=== PATIENT | female | born 1960 | race Caucasian/White ===

== ENCOUNTER 2016-12-14 14:44 | Inpatient (IN) ==
[2016-12-14] MEDS ORDERED: SODIUM CHLORIDE 0.9% 500 ML IV STA (15:13)
--- NOTE | 2016-12-14 15:20 | Emergency Department Note ---
Arrival - Arrival Chief Complaint: Seizure Stated Complaint: seizures ED Nursing Triage Note: Pt arrived via ems with complaint of seizures x 3 whiule at [facility]. Pt reports being here earlier being treated for uti. Pt is a resident of [facility]. Mode of Arrival: Stretcher Time Seen by Provider: 12/14/16 15:08 - History of Present Illness HPI Narrative: 56-year-old white female brought here today by EMS because she had a seizure. Patient was recently seen this morning also given a Johnson with leg bag treated for urine tract infection sent home. Patient has a history of seizures. Patient normally has a headache after seizure which she does today her Current complaints are headache feeling weak and recent seizure activity. Patient received a antibiotic injection this morning according to family. Patient also received her monthly Haldol injection yesterday Allergies/Adverse Reactions: Allergies Allergy/AdvReac Type Severity Reaction Status Date / Time cephalexin [From Keflex] AdvReac Nausea Verified 12/14/16 11:09 Home Medications: Home Medications Medication Instructions Recorded Confirmed Type Aspirin [Ecotrin] 81 mg PO DAILY 05/14/16 12/14/16 History Benztropine Tab [Cogentin Tab] 1 mg PO DAILY 05/14/16 12/14/16 History Docusate Sodium 100 mg PO BID 05/14/16 12/14/16 History Ferrous Sulfate 325 mg PO DAILY 05/14/16 12/14/16 History Ipratropium/Albuterol Sulfate 3 ml IH Q6H PRN 05/14/16 12/14/16 History [Iprat-Albut 0.5-3(2.5) mg/3 ml] Lactulose 30 ml PO DAILY 05/14/16 12/14/16 History Levothyroxine Tab [Synthroid Tab] 150 mcg PO QAM 05/14/16 12/14/16 History Methocarbamol Tab [Robaxin Tab] 500 - 1,000 mg PO Q8H PRN 05/14/16 12/14/16 History Multivitamin [Multivitamins] 1 each PO DAILY 05/14/16 12/14/16 History Nitrofurantoin Macrocrystal 50 mg PO DAILY 05/14/16 12/14/16 History [Nitrofurantoin] Omeprazole [Prilosec] 20 mg PO BID 05/14/16 12/14/16 History Phenytoin Sodium Extended 400 mg PO BEDTIME 05/14/16 12/14/16 History Ursodiol 500 mg PO TID W/MEALS 05/14/16 12/14/16 History diphenhydrAMINE CAP [Benadryl Cap] 25 mg PO Q6H PRN 05/14/16 12/14/16 History Acetaminophen [Acetaminophen ER 650 mg PO Q4H PRN MDD 3GM/24H 12/14/16 12/14/16 History Tab] Calcium Carbonate [Calcium] 500 - 1,000 mg PO Q8H PRN 12/14/16 12/14/16 History Divalproex Sodium [Divalproex 1,500 mg PO BID 12/14/16 12/14/16 History Sprinkle] Gabapentin [Gabapentin] 100 mg PO BEDTIME 12/14/16 12/14/16 History Haloperidol [Haloperidol] 5 mg PO BID 12/14/16 12/14/16 History Ipratropium/Albuterol Sulfate 3 ml INH Q6H PRN 12/14/16 12/14/16 History [Iprat-Albut 0.5-3(2.5) mg/3 ml] Magnesium Hydroxide Susp [Milk of 30 ml PO Q8H PRN 12/14/16 12/14/16 History Magnesia] Phenol 1.4% Throat [place] 2 spray PO Q2H PRN 12/14/16 12/14/16 History [Chloraseptic [place]] Phenytoin Sodium Extended 300 mg PO QAM 12/14/16 12/14/16 History Venlafaxine HCl [Venlafaxine HCl 150 mg PO DAILY 12/14/16 12/14/16 History ER] Review of System - Review of System 12 point system: reviewed and no additional remarkable complaints except as stated - Review of System Constitutional: Present: weakness Neurological: Present: headache, weakness Medical,Surgical,& Family Hx - Medical History Cardio: History of: Hypertension Psychological: History of: Depression, Schizophrenia, Psychiatric Problems ( Mentally challanged) Neurology: History of: Seizures Gastrointestinal: History of: GERD - Social History Smoking Status: Smoker, status unknown Frequency of Alcohol Use: None Type of Drug Use: None Exam Vital Signs: Vital Signs Temperature 98.2 F 12/14/16 14:44 Pulse Rate 79 12/14/16 16:00 Respiratory Rate 15 12/14/16 16:00 Blood Pressure 125/86 12/14/16 16:00 O2 Sat by Pulse Oximetry 95 12/14/16 16:00 - General General appearance: alert - Head Head exam: Present: atraumatic, normocephalic, normal inspection - Eye Eye exam: Present: normal appearance, PERRL, EOMI - ENT ENT exam: Present: normal exam, normal oropharynx, mucous membranes dry - Neck Neck exam: Present: normal inspection, full ROM, trachea midline - Chest Chest inspection: Present: normal inspection, symmetric chest wall rise - Respiratory Respiratory exam: Present: normal lung sounds bilaterally - Cardiovascular Cardiovascular exam: Present: regular rate, normal rhythm, normal heart sounds - Abdominal Exam Abdominal exam: Present: soft, normal bowel sounds - Extremities Exam Extremities exam: Present: normal inspection, full ROM, pedal edema - Back Exam Back exam: Present: normal inspection, full ROM - Neurological Exam Neurological exam: Present: alert, oriented X3, normal gait - Psychiatric Psychiatric exam: Present: flat affect - Skin Skin exam: Present: warm, dry, intact, normal color Course - Consultations Consultation #1: Hospitalist will admit patient Time: 17:27 Results - Labs CBC & BMP: 12/14/16 16:34 12/14/16 16:34 Critical Care Time Critical Care Time: Yes Total Critical Care Time: 60 Disposition Clinical Impression: Urinary tract infection, Metabolic acidosis, Epileptic seizure, Schizophrenia Case discussed with: patient, patient's family Disposition: Still a Patient Condition: Stable Time of Disposition: 17:27
--- NOTE | 2016-12-14 15:32 | CT Report ---
Referring physician: Marcellus Parsons Exam: CT brain without contrast Date: 12/14/2016 Comparison: 05/18/2010 Reason: Seizure Technique: Axial images of the head were obtained without the use of contrast. Total DLP was 1103.60 mGy*cm. Findings: No hydrocephalus or midline shift is present. There is no evidence of an acute infarction, recent intracranial hemorrhage or abnormal mass effect. The osseous structures appear intact. The mastoid air cells and visualized paranasal sinuses are clear. Impression: No acute intracranial abnormality is identified. The CT exam was performed using one or more of the following dose reduction techniques: Automated exposure control and adjustment of the mA and/or kV according to patient size. PROCEDURE INTERPRETED AT [facility] DEPARTMENT OF RADIOLOGY Final Report Signed by: Dr. Maranda Mcbride
[2016-12-14 16:53] LABS: Basophils % 0.3 % (0.0-0.8); Eosinophils # 0.2 10*3/uL (0.0-0.87); Eosinophils % 1.9 % (0.00-10.9); Hematocrit 39.2 VOL% (35.7-47.0); Hemoglobin 13.6 GM/DL (12.0-16.0); Immature Granulocytes % 2.8 %; Immature Granulocytes Absolute 0.26 #; Lymphocytes # 2.4 10*3/uL (1.4-4.0); Lymphocytes % 25.1 % (21.3-54.2); Mean Corpuscular HGB Conc 34.7 GM/DL (32-36); Mean Corpuscular Hemoglobin 34 PG (27-34); Mean Platelet Volume 9.2 FL (9.6-12.0); Monocytes % 10.3 % (1.7-12.7); Neutrophils # 5.6 10*3/uL (1.4-7.4); Neutrophils % 59.6 % (38.7-73.9); Platelet Count 225 T/CUMM (130-400); Red Blood Count 4.04 MC/CUMM (3.8-5.5); Red Cell Distribution Width 14.6 % (9.3-17.3); White Blood Count 9.4 T/CUMM (4-12)
[2016-12-14 17:05] LABS: Phenytoin (Dilantin) 10.2 UG/ML (10-20)
[2016-12-14 17:08] LABS: Alanine Aminotransferase 14 U/L (13-56); Albumin 2.8 G/DL (3.4-5.0); Alkaline Phosphatase 311 U/L (45-117); Aspartate Amino Transferase 14 U/L (0-37); Bilirubin,Total < 0.39 MG/DL (0.2-1.0); Blood Urea Nitrogen 14 MG/DL (7-18); Calcium 8.2 MG/DL (8.5-10.1); Glucose 103 MG/DL (74-106); Osmolality,Calculated 277.5 MOS/KG (273-304); Potassium 3.5 MMOL/L (3.5-5.1); Sodium 139 MMOL/L (136-145); Total Protein 6.5 G/DL (6.4-8.3)
[2016-12-14] MEDS ORDERED: PHENYTOIN INJ 1,000 MG in SODIUM CHLORIDE 0.9% 100 ML IV STA (17:21)
[2016-12-14] MEDS ORDERED: LEVOFLOXACIN INJ 500 MG in PREMIX 1 EACH IV STA (17:26)
[2016-12-14] MEDS ORDERED: PHENYTOIN 100 MG/2 ML VIAL IV ONE (17:39)
--- NOTE | 2016-12-14 18:07 | Hospitalist History & Physical ---
<Yesika Kilpatrickda - Last Filed: 12/14/16 17:59> Assessment and Plan (1) Epileptic seizure Status: Acute Assessment and plan: The patient had recurrent seizure activity prior to presentation. No further episodes are noted. I feel that this may be secondary to an infectious process. Her her Dilantin and valproic acid levels were therapeutic. We will resume her anticonvulsant therapy and monitor. Current Visit: Yes (2) Metabolic acidosis Status: Acute Current Visit: Yes (3) Urinary tract infection Status: Acute Assessment and plan: The patient was previously seen in the fast track and given an antibiotic injection and oral meds for discharge. The patient had not started the oral antibiotics at the time that the seizure activity occurred. We will start empiric antibiotics and reassess in a.m. I feel that the UTIs will be a chronic issue for this patient due to her self catheterizations. She performs them independently however I am not sure exactly how is able to due to her mental status. Current Visit: Yes History of Present Illness Chief complaint: Seizure activity and UTI History of present illness: This is a very pleasant 56-year-old female that presented to the ED at [facility] for evaluation of seizure activity. The patient has a very complex medical history significant for seizures, depression, schizophrenia , seizures, hypertension, and GERD. The patient presented to the urgent care/ [facility] this morning and was subsequently diagnosed with the UTI. She was given an antibiotic injection and prescribed oral antibiotics for home use. After leaving the hospital this morning, the patient went out for lunch with her sister and started to experience multiple episodes of seizure activity. EMS was notified and the patient was transferred to [facility] for further evaluation. At the time of easy presentation, the patient was assessed. Labs were obtained which reported a sodium at 139, potassium at 3.5, chloride at 110, carbon dioxide is 16, anion gap is 16.5, BUN 14, creatinine at 1.50, calcium at 8.2, magnesium at 2.0, alkaline phosphatase 311, albumin at 2.8. Dilantin level was obtained and was noted at 10.2 and valproic acid level was noted at 58 0. Urinalysis was obtained at the initial encounter which was significant for a positive findings of nitrate, large amount of leukocytes, and greater than 2 urobilinogen. After brief discussion with Dr. Parsons and Dr. Ignacio, the patient will be admitted to the hospitalist services for continuation of care. Home Medications Medication Instructions Recorded Confirmed Type Aspirin [Ecotrin] 81 mg PO DAILY 05/14/16 12/14/16 History Benztropine Tab [Cogentin Tab] 1 mg PO DAILY 05/14/16 12/14/16 History Docusate Sodium 100 mg PO BID 05/14/16 12/14/16 History Ferrous Sulfate 325 mg PO DAILY 05/14/16 12/14/16 History Ipratropium/Albuterol Sulfate 3 ml IH Q6H PRN 05/14/16 12/14/16 History [Iprat-Albut 0.5-3(2.5) mg/3 ml] Lactulose 30 ml PO DAILY 05/14/16 12/14/16 History Levothyroxine Tab [Synthroid Tab] 150 mcg PO QAM 05/14/16 12/14/16 History Methocarbamol Tab [Robaxin Tab] 500 - 1,000 mg PO Q8H PRN 05/14/16 12/14/16 History Multivitamin [Multivitamins] 1 each PO DAILY 05/14/16 12/14/16 History Nitrofurantoin Macrocrystal 50 mg PO DAILY 05/14/16 12/14/16 History [Nitrofurantoin] Omeprazole [Prilosec] 20 mg PO BID 05/14/16 12/14/16 History Phenytoin Sodium Extended 400 mg PO BEDTIME 05/14/16 12/14/16 History Ursodiol 500 mg PO TID W/MEALS 05/14/16 12/14/16 History diphenhydrAMINE CAP [Benadryl Cap] 25 mg PO Q6H PRN 05/14/16 12/14/16 History Acetaminophen [Acetaminophen ER 650 mg PO Q4H PRN MDD 3GM/24H 12/14/16 12/14/16 History Tab] Calcium Carbonate [Calcium] 500 - 1,000 mg PO Q8H PRN 12/14/16 12/14/16 History Divalproex Sodium [Divalproex 1,500 mg PO BID 12/14/16 12/14/16 History Sprinkle] Gabapentin [Gabapentin] 100 mg PO BEDTIME 12/14/16 12/14/16 History Haloperidol [Haloperidol] 5 mg PO BID 12/14/16 12/14/16 History Ipratropium/Albuterol Sulfate 3 ml INH Q6H PRN 12/14/16 12/14/16 History [Iprat-Albut 0.5-3(2.5) mg/3 ml] Magnesium Hydroxide Susp [Milk of 30 ml PO Q8H PRN 12/14/16 12/14/16 History Magnesia] Phenol 1.4% Throat [place] 2 spray PO Q2H PRN 12/14/16 12/14/16 History [Chloraseptic [place]] Phenytoin Sodium Extended 300 mg PO QAM 12/14/16 12/14/16 History Venlafaxine HCl [Venlafaxine HCl 150 mg PO DAILY 12/14/16 12/14/16 History ER] Allergies Allergy/AdvReac Type Severity Reaction Status Date / Time cephalexin [From Keflex] AdvReac Nausea Verified 12/14/16 11:09 Medical,Surgical,& Family Hx - Medical History Cardio: History of: Hypertension Psychological: History of: Depression, Schizophrenia, Psychiatric Problems ( Mentally challanged) Neurology: History of: Seizures Gastrointestinal: History of: GERD - Social History Smoking Status: Smoker, status unknown Frequency of Alcohol Use: None Type of Drug Use: None 12 point system: reviewed and no additional remarkable complaints except as stated Exam - Constitutional Vitals: Period Temp Pulse Resp BP Sys/Can Pulse Ox Last 24 Hr 98.2 F-98.2 F 79-86 14-22 125-139/75-88 94-96 General appearance: normal weight, no acute distress - Head Head exam: Present: normal inspection, normocephalic, atraumatic - Eye Eye exam: Present: EOMI. Absent: conjunctival injection Pupils: Present: IVELISSE, normal accommodation - ENT ENT exam: Present: normal exam, normal external ear exam, normal oropharynx - Neck Neck exam: Present: normal inspection. Absent: lymphadenopathy, meningismus, tenderness, thyromegaly - Respiratory Respiratory exam: Present: clear to auscultation bilaterally. Absent: rales, rhonchi, stridor, wheezes - Cardiovascular Cardiovascular exam: Present: regular rate and rhythm. Absent: carotid bruit, diastolic murmur, gallop, JVD, rubs, systolic murmur - GI/Abdominal GI/Abdominal exam: Present: normal bowel sounds, tenderness - Extremities Exam Extremities exam: Present: normal inspection, normal capillary refill, full ROM. Absent: edema - Back Exam Back exam: Present: normal inspection - Neurological Exam Neurological exam: Present: alert, oriented X3 - Psychiatric Psychiatric exam: Present: normal affect, normal mood - Skin Skin exam: Present: normal color, warm, dry Results - Labs CBC & BMP: 12/14/16 16:34 12/14/16 16:34 Lab Results: I have reviewed the past 24 hour labs <Demarco Ignacio - Last Filed: 12/14/16 18:25> History of Present Illness History of present illness: Ms. Cortez is a 56 year old female Exam - Constitutional Vitals: Period Temp Pulse Resp BP Sys/Cna Pulse Ox Last 24 Hr 98.2 F-98.2 F 76-86 14-22 125-155/75-93 94-97 Results - Labs CBC & BMP: 12/14/16 16:34 12/14/16 16:34
[2016-12-14 18:30] LABS: ABG Base Excess -6.3 MMOL/L (-2.5-2.5); ABG HCO3 19.3 MMOL/L (20-26); ABG Oxygen Saturation 96.5 % (95-100); ABG PCO2 30.7 MM HG (35-48); ABG PH 7.371 (7.35-7.45); ABG PO2 82.3 MM HG (80-95); ABG TCO2 15.5 MMOL/L (23-27)
[2016-12-14] MEDS ORDERED: CALCIUM (CARBONATE) 500 MG TABLET PO PRN (20:04)
[2016-12-14] MEDS ORDERED: diphenhydrAMINE CAP 25 MG CAPSULE PO PRN (20:04)
[2016-12-14] MEDS ORDERED: ACETAMINOPHEN 325 MG TABLET PO PRN (20:04)
[2016-12-14] MEDS ORDERED: ALBUTEROL/IPRATROPIUM 3 ML NEB RESP TX PRN (20:04)
[2016-12-14] MEDS ORDERED: MAGNESIUM HYDROXIDE SUSP 30 ML UDCUP PO PRN (20:04)
[2016-12-14] MEDS ORDERED: PHENOL 1.4% THROAT SPRAY 177 ML BOTTLE PO PRN (20:04)
[2016-12-14] MEDS: DOCUSATE SODIUM 100 MG CAPSULE PO SCH (20:59)
[2016-12-14] MEDS: PANTOPRAZOLE 40 MG TABLET PO SCH (20:59)
[2016-12-14] MEDS ORDERED: DIVALPROEX SPRINKLE 125 MG CAPSULE PO SCH (21:00)
[2016-12-14] MEDS ORDERED: PHENYTOIN ER 100 MG CAPSULE PO SCH (21:00)
[2016-12-14] MEDS ORDERED: LEVOFLOXACIN INJ 500 MG in PREMIX 1 EACH IV ONE (21:00)
[2016-12-14] MEDS: VALPROIC ACID 250 MG/5 ML UDCUP PO SCH (22:09)
[2016-12-14] MEDS: HALOPERIDOL 5 MG TABLET PO SCH (22:09)
[2016-12-15 07:07] VITALS: BP 115/74
[2016-12-15] MEDS ORDERED: URSODIOL 500 MG PO SCH (08:00)
[2016-12-15] MEDS ORDERED: LEVOTHYROXINE 150 MCG TABLET PO SCH (09:00)
[2016-12-15] MEDS ORDERED: FERROUS SULFATE 325 MG TABLET PO SCH (09:00)
[2016-12-15] MEDS ORDERED: MULTIVITAMIN (CENTRUM) TABLET PO SCH (09:00)
[2016-12-15] MEDS ORDERED: VENLAFAXINE XR 75 MG CAPSULE PO SCH (09:00)
[2016-12-15] MEDS ORDERED: PHENYTOIN ER 100 MG CAPSULE PO SCH (09:00)
[2016-12-15] MEDS ORDERED: ASPIRIN EC 81 MG TABLET PO SCH (09:00)
[2016-12-15] MEDS ORDERED: BENZTROPINE 1 MG TABLET PO SCH (09:00)
[2016-12-15] MEDS ORDERED: LACTULOSE 20 GM/30 ML UDCUP PO SCH (09:00)
--- NOTE | 2016-12-15 09:09 | Discharge Summary ---
Hospital Course - Hospital Course Hospital Course: Ms. Cortez is a 56-year-old female resident of the long term, [facility], who was seen early yesterday morning and diagnosed with a UTI and prescribed antibiotics. On the way home she stopped at [employer] to eat and had 4 seizures and was brought back to the emergency department. She was loaded with Dilantin and placed in observation overnight. She has been afebrile and hemodynamically stable without any further seizure activity. She did receive some IV antibiotics in the emergency department last evening as well. She is now tolerating her diet her levels are appropriate (valproic acid level 58 and Dilantin level 15.9) and is felt that she can be discharged back to [facility] [place] for outpatient care. - Time spent with patient Time with patient DS: Less than 30 minutes Diagnosis - Discharge Diagnosis (1) Epileptic seizure Status: Acute (2) Urinary tract infection Status: Acute Discharge Plan - Discharge Data Disposition: Disch/Xfer to [facility] Condition at Discharge: Stable Discharge Diet: advance to your usual diet Activity: resume usual activities as tolerated - Discharge Medications Continue Aspirin [Ecotrin] 81 mg PO DAILY Benztropine Tab [Cogentin Tab] 1 mg PO DAILY diphenhydrAMINE CAP [Benadryl Cap] 25 mg PO Q6H PRN PRN Reason: Itching Docusate Sodium 100 mg PO BID Ferrous Sulfate 325 mg PO DAILY Ipratropium/Albuterol Sulfate [Iprat-Albut 0.5-3(2.5) mg/3 ml] 3 ml IH Q6H PRN PRN Reason: Shortness Of Breath Lactulose 30 ml PO DAILY Levothyroxine Tab [Synthroid Tab] 150 mcg PO QAM Methocarbamol Tab [Robaxin Tab] 500 - 1,000 mg PO Q8H PRN PRN Reason: MILD TO MODERATE PAIN Multivitamin [Multivitamins] 1 each PO DAILY Omeprazole [Prilosec] 20 mg PO BID Ursodiol 500 mg PO TID W/MEALS Phenytoin Sodium Extended 400 mg PO BEDTIME Calcium Carbonate [Calcium] 500 - 1,000 mg PO Q8H PRN PRN Reason: Heartburn Divalproex Sodium [Divalproex Sprinkle] 1,500 mg PO BID Gabapentin 100 mg PO BEDTIME Ipratropium/Albuterol Sulfate [Iprat-Albut 0.5-3(2.5) mg/3 ml] 3 ml INH Q6H PRN PRN Reason: Shortness Of Breath/Wheezing Magnesium Hydroxide Susp [Milk of [place]es[place]] 30 ml PO Q8H PRN PRN Reason: Constipation Phenol 1.4% Throat [place] [Chloraseptic [place]] 2 spray PO Q2H PRN PRN Reason: Sore Throat Phenytoin Sodium Extended 300 mg PO QAM Venlafaxine HCl [Venlafaxine HCl ER] 150 mg PO DAILY Acetaminophen [Acetaminophen ER Tab] 650 mg PO Q4H PRN MDD 3GM/24H PRN Reason: Pain Haloperidol 5 mg PO BID Discontinued Nitrofurantoin Macrocrystal [Nitrofurantoin] 50 mg PO DAILY - Follow Up or Referral Follow Up: Александр Barone [Physician] - 3 Days - Forms/Instructions Additional Discharge Instructions: She may continue and complete antibiotics for urinary tract infection as prescribed in the initial emergency room visit. She needs follow-up by her primary care provider in approximately 3 days and may need follow-up valproic acid and Dilantin levels and further adjustments made on an outpatient basis. Exam - Constitutional Vitals: Period Temp Pulse Resp BP Sys/Can Pulse Ox Last 24 Hr 96.8 F-98.7 F 70-90 12-22 111-155/67-93 94-99 General appearance: no acute distress - Head Head exam: Present: normocephalic, atraumatic - Eye Eye exam: Present: EOMI Pupils: Present: IVELISSE - ENT ENT exam: Present: normal exam - Neck Neck exam: Present: normal inspection - Respiratory Respiratory exam: Present: clear to auscultation bilaterally - Cardiovascular Cardiovascular exam: Present: regular rate and rhythm - GI/Abdominal GI/Abdominal exam: Present: normal bowel sounds, soft. Absent: tenderness - Extremities Exam Extremities exam: Absent: calf tenderness, edema - Back Exam Back exam: Present: normal inspection - Neurological Exam Neurological exam: Present: alert, oriented X3, altered. Absent: motor sensory deficit - Psychiatric Psychiatric exam: Present: normal affect, normal mood. Absent: agitated, anxious - Skin Skin exam: Present: warm, dry. Absent: erythema Discharge Results Labs on day of discharge: Labs from last 24 hours 12/15/16 12/14/16 12/14/16 05:05 18:25 16:34 WBC RBC Hgb Hct MCV MCH MCHC RDW Plt Count MPV Neut % (Auto) Lymph % (Auto) [place] % (Auto) Eos % (Auto) Baso % (Auto) Neut # (Auto) Lymph # (Auto) [place] # (Auto) Eos # (Auto) Baso # (Auto) Immature Gran % Nucleated RBC % Immature Gran # Nucleated RBCs # ABG pH 7.371 ABG pCO2 30.7 L ABG pO2 82.3 ABG HCO3 19.3 L ABG Total CO2 15.5 L ABG O2 Saturation 96.5 ABG Base Excess -6.3 L Sodium Potassium Chloride Carbon Dioxide Anion Gap BUN Creatinine GFR Calculation BUN/Creatinine Ratio Glucose Calculated Osmolality Calcium Magnesium Total Bilirubin AST ALT Alkaline Phosphatase Total Protein Albumin Globulin Albumin/Globulin Ratio Prolactin Phenytoin 15.9 10.2 Valproic Acid 58.0 Serum Alcohol 12/14/16 12/14/16 12/14/16 16:34 16:34 16:34 WBC 9.4 RBC 4.04 Hgb 13.6 Hct 39.2 MCV 97.0 MCH 34 MCHC 34.7 RDW 14.6 Plt Count 225 MPV 9.2 L Neut % (Auto) 59.6 Lymph % (Auto) 25.1 [place] % (Auto) 10.3 Eos % (Auto) 1.9 Baso % (Auto) 0.3 Neut # (Auto) 5.6 Lymph # (Auto) 2.4 [place] # (Auto) 1.0 H Eos # (Auto) 0.2 Baso # (Auto) 0.0 Immature Gran % 2.8 Nucleated RBC % 0.0 Immature Gran # 0.26 Nucleated RBCs # 0.00 ABG pH ABG pCO2 ABG pO2 ABG HCO3 ABG Total CO2 ABG O2 Saturation ABG Base Excess Sodium 139 Potassium 3.5 Chloride 110 H Carbon Dioxide 16 L Anion Gap 16.5 H BUN 14 Creatinine 1.50 H GFR Calculation 46 BUN/Creatinine Ratio 9.00 Glucose 103 Calculated Osmolality 277.5 Calcium 8.2 L Magnesium 2.0 Total Bilirubin < 0.39 AST 14 ALT 14 Alkaline Phosphatase 311 H Total Protein 6.5 Albumin 2.8 L Globulin 3.7 H Albumin/Globulin Ratio 0.7 L Prolactin 16.2 Phenytoin Valproic Acid Serum Alcohol < 15 L - Imaging and Cardiology Procedure: CT: report reviewed by DS: Provider Date of admission: 12/14/16 17:50 Primary care physician: . No PCP Attending physician on admission: Zain Pinto DO Discharging clinician: Jasmin Buck Expected date of discharge: 12/15/16
[2016-12-15] MEDS: DOCUSATE SODIUM 100 MG CAPSULE PO SCH (10:03)
[2016-12-15] MEDS: PANTOPRAZOLE 40 MG TABLET PO SCH (10:03)
[2016-12-15] MEDS: VALPROIC ACID 250 MG/5 ML UDCUP PO SCH (10:04)
[2016-12-15] MEDS: HALOPERIDOL 5 MG TABLET PO SCH (10:06)
[2016-12-15] MEDS ORDERED: LEVOFLOXACIN INJ 250 MG in PREMIX 1 EACH IV SCH (21:00)
== END 2016-12-15 13:25 | DRG 101 ==
LOC: EDUNIT# → EDBD → N.ED 14:44 → N.EDINP 17:50 → SUATTDRO 17:50 → N.5E 18:13
PROVIDERS: ADMIT Internal Medicine; ATTEND Hospitalist